=== PATIENT | male | born 1940 | race Caucasian/White ===

== ENCOUNTER 2018-11-06 09:50 | Day surgery (SDC) | payer MEDICARE ==
[~2018-11-06 09:50] MED LIST: ACETAMINOPHEN 1,000 MG/100 ML BTL IV ONE
[2018-11-06] MEDS ORDERED: MIDAZOLAM HCL 2MG/2ML VIAL IV ONE (09:51)
[2018-11-06] MEDS ORDERED: FENTANYL PF 100MCG/2ML VIAL IV ONE (09:51)
[2018-11-06] MEDS ORDERED: LIDOCAINE 2% MDV (20MG/ML) 20ML VIAL IV ONE (09:51)
[2018-11-06] MEDS ORDERED: KETOROLAC 30 MG/ML VIAL IVP ONE (09:51)
[2018-11-06] MEDS ORDERED: SEVOFLURANE 250 ML INH ONE (09:51)
[2018-11-06] MEDS ORDERED: PROPOFOL 10 MG/ML VIAL IV ONE (09:51)
[2018-11-06] MEDS ORDERED: LIDOCAINE 1% MPF 100MG/10ML STERILE-PAK AMPULE SQ ONE ×2 (11:09)
--- NOTE | 2018-11-07 08:40 | Operative Note ---
DATE OF SURGERY: 11/06/2018 Surgeon: Jacob Mansfield DO PREOPERATIVE DIAGNOSES: 1. Trigger finger of the left index finger. 2. Trigger finger, left little finger. POSTOPERATIVE DIAGNOSES: 1. Trigger finger of the left index finger. 2. Trigger finger, left little finger. OPERATION: 1. Tenotomy A1 dyllan left index finger. 2. Tenotomy A1 dyllan left little finger. DESCRIPTION OF PROCEDURE: This 78-year-old male was taken to the operating room and placed in the supine position on the operating room table. Assisted local anesthesia was induced. The left upper extremity was elevated, prepped with Hibiclens, and draped in the usual sterile fashion. It was exsanguinated and the tourniquet inflated to 250 mmHg. Xylocaine 1% plain was used as a local anesthetic. Two incisions were made, one in line with the sublimis tendon just at the very proximal edge of the A1 dyllan of the left index finger and a similar type of incision was made overlying the proximal edge of the A1 dyllan on the left little finger. Dissection was carried down through the skin and subcutaneous tissue. Hemostasis obtained with the electrocautery. The proximal edge of the A1 dyllan was easily identified and it was split from its proximal to its distal margin and completely freed up the sublimis tendon to the left index finger. Palpation revealed complete release, and nodularity of the sublimis tendon was noted. The wound was irrigated with lactated Ringer's solution and the incision over the 2nd metacarpal head going to the index finger was closed. The exact same procedure was performed of the left little finger. That incision also closed with interrupted 6-0 nylon suture. Sterile dressings were applied and the patient taken to the recovery room in satisfactory condition. GROSS PATHOLOGY: This patient had nodularity of the sublimis tendon to the index finger as well as to the left little finger. Once the A1 dyllan had been incised, complete inspection of both these tendons was performed and full free range of motion was noted without any impingement being identified. CC: MD RAMÓN Garcia
== END 2018-11-06 12:15 | disposition home or self-care (01) ==
LOC: SUR 09:50
PROVIDERS: ATTEND Orthopaedic Surgery
DX: M65.322 Trigger finger, left index finger (principal); M65.352 Trigger finger, left little finger; I10 Essential (primary) hypertension; E78.00 Pure hypercholesterolemia, unspecified; K21.9 Gastro-esophageal reflux disease without esophagitis
CPT/HCPCS: 26055 ×2; 01810; J1885; J3010; J3490